=== PATIENT | female | born 1975 | race Caucasian/White ===

== ENCOUNTER 2017-01-28 19:55 | Emergency (ER) | payer OTHER ==
[2017-01-28 20:05] VITALS: BP 143/93
[2017-01-28] MEDS ORDERED: Ondansetron 4 MG/2 ML SDV IVPUSH ONE ×2 (20:16→20:49)
--- NOTE | 2017-01-28 20:17 | EDM.PDOC ---
ED HPI GENERAL MEDICAL PROBLEM - General Chief Complaint: Headache Stated Complaint: VOMITING/HEAD HURTS/LEFT ARM NUMB Time Seen by Provider: 01/28/17 20:10 - History of Present Illness INITIAL COMMENTS - FREE TEXT/NARRATIVE: 41-year-old female presents emergency room with sudden onset severe headache. This headache is been going on for nearly 2 hours fairly sudden onset shortly after it started she had pretty severe vomiting. Patient does not have history of migraines does not have a history of headaches in general. Does not have a family history of spontaneous hemorrhages into the head were of headaches. Patient denies any fevers or chills she has some significant neck discomfort with this as well. Patient is treated for hypertension with metoprolol. Her headache is predominantly on the right side and right occipital area. Right Posterior Head Pain Score (Numeric/FACES): 8 - Related Data Allergies Allergy/AdvReac Type Severity Reaction Status Date / Time No Known Allergies Allergy Verified 01/28/17 20:05 Home Meds: Home Meds Cholecalciferol (Vitamin D3) [Vitamin D3] 50,000 unit PO WE 06/02/15 [History] Metoprolol Succinate [Toprol XL] 25 mg PO DAILY 06/02/15 [History] Past Medical History Cardiovascular History: Reports: High Cholesterol, Hypertension Endocrine/Metabolic History: Reports: Vitamin D Deficiency - Past Surgical History Female Surgical History: Reports: Endometrial Ablation Social & Family History - Tobacco Use Smoking Status *Q: Never Smoker - Recreational Drug Use Recreational Drug Use: No ED ROS GENERAL - Review of Systems Review Of Systems: See Below Constitutional: Reports: No Symptoms Respiratory: Reports: No Symptoms Cardiovascular: Reports: No Symptoms GI/Abdominal: Reports: Nausea, Vomiting. Denies: Constipation, Diarrhea : Reports: No Symptoms Musculoskeletal: Reports: Neck Pain Neurological: Reports: Headache Psychiatric: Reports: No Symptoms Hematologic/Lymphatic: Reports: No Symptoms - Physical Exam Exam: See Below Exam Limited By: No Limitations General Appearance: Alert, Moderate Distress (From the discomfort) Eye Exam: Bilateral Eye: Normal Inspection, PERRL Ears: Normal External Exam, Normal Canal, Hearing Grossly Normal, Normal TMs Nose: Normal Inspection, Normal Mucosa, No Blood Throat/Mouth: Normal Inspection, Normal Lips, Normal Teeth, Normal Gums, Normal Oropharynx, Normal Voice, No Airway Compromise Head Exam: Atraumatic, Normocephalic Neck: Normal Inspection, Other (She has some significant neck tightness and does not want to move her neck). No: Lymphadenopathy (L), Lymphadenopathy (R) Respiratory/Chest: No Respiratory Distress, Lungs Clear, Normal Breath Sounds Cardiovascular: Regular Rate, Rhythm, No Edema, No Murmur GI/Abdominal: Normal Bowel Sounds, Soft, Non-Tender Neuro Exam (Abbreviated): No Motor/Sensory Deficits. No: Inattentive, Confused Course - Vital Signs Last Recorded V/S: Last Vital Signs Temp 35.6 C 01/28/17 20:01 Pulse 113 H 01/28/17 20:01 Resp 22 H 01/28/17 20:01 BP 143/93 H 01/28/17 20:01 Pulse Ox 98 01/28/17 20:01 - Orders/Labs/Meds Orders: Active Orders 24 hr Category Date Time Status Head wo Cont [CT] Stat Exams 01/28/17 20:10 Taken CELL COUNT,CSF TUBE 2 [BF] Stat Lab 01/28/17 22:30 Results CULTURE CSF + SMEAR [RM] Stat Lab 01/28/17 22:30 Received [facility] VIRUS PANEL IGG,IGM [REF] Stat Lab 01/28/17 23:10 Ordered Labs: Laboratory Tests 01/28/17 01/28/17 01/28/17 Range/Units 20:10 20:10 20:10 WBC 11.71 H (3.98-10.04) K/mm3 RBC 4.57 (3.98-5.22) M/mm3 Hgb 13.1 (11.2-15.7) gm/L Hct 39.2 (34.1-44.9) % MCV 85.8 (79.4-94.8) fl MCH 28.7 (25.6-32.2) pg MCHC 33.4 (32.2-35.5) g/dl RDW Std Deviation 38.5 (36.4-46.3) fL Plt Count 302 (182-369) K/mm3 MPV 9.8 (9.4-12.3) fl Neutrophils % (Manual) 57 (40-60) % Band Neutrophils % 0 (0-10) % Lymphocytes % (Manual) 32 (20-40) % Atypical Lymphs % 4 % Monocytes % (Manual) 6 (2-10) % Eosinophils % (Manual) 1 (0.7-5.8) % Basophils % (Manual) 0 L (0.1-1.2) Platelet Estimate Adequate Plt Morphology Comment Normal RBC Morph Comment Normal ESR 29 H (0-20) mm/hr PT 9.7 (8.0-13.0) SECONDS INR 0.90 APTT 24 (22-36) SECONDS Sodium (136-145) mEq/L Potassium (3.5-5.1) mEq/L Chloride (98-107) mEq/L Carbon Dioxide (21-32) mEq/L Anion Gap (5-15) BUN (7-18) mg/dL Creatinine (0.55-1.02) mg/dL Est Cr Clr Drug Dosing mL/min Estimated GFR (MDRD) (>60) mL/min BUN/Creatinine Ratio (14-18) Glucose (74-106) mg/dL Calcium (8.5-10.1) mg/dL Total Bilirubin (0.2-1.0) mg/dL AST (15-37) U/L ALT (14-59) U/L Alkaline Phosphatase (46-116) U/L C-Reactive Protein (<1.0) mg/dL Total Protein (6.4-8.2) g/dl Albumin (3.4-5.0) g/dl Globulin gm/dL Albumin/Globulin Ratio (1-2) Urine Color (Yellow) Urine Appearance (Clear) Urine pH (5.0-8.0) Ur Specific [place] (1.005-1.030) Urine Protein (Negative) Urine Glucose (UA) (Negative) Urine Ketones (Negative) Urine Occult Blood (Negative) Urine Nitrite (Negative) Urine Bilirubin (Negative) Urine Urobilinogen (0.2-1.0) Ur Leukocyte Esterase (Negative) Urine RBC (0-5) /hpf Urine WBC (0-5) /hpf Ur Epithelial Cells (0-5) /hpf Urine Bacteria (FEW) /hpf Urine Mucus (FEW) /hpf CSF Volume (2) ml CSF Color (2) CSF Supernat Color (2) CSF Appearance (2) (CLEAR) CSF WBC (2) (0-8) /uL CSF RBC (2) (0-0.010) /mm*3 CSF Glucose (40-70) mg/dl CSF Total Protein (15-45) mg/dl 0801/28/17 01/28/17 Range/Units 20:10 22:30 22:30 WBC (3.98-10.04) K/mm3 RBC (3.98-5.22) M/mm3 Hgb (11.2-15.7) gm/L Hct (34.1-44.9) % MCV (79.4-94.8) fl MCH (25.6-32.2) pg MCHC (32.2-35.5) g/dl RDW Std Deviation (36.4-46.3) fL Plt Count (182-369) K/mm3 MPV (9.4-12.3) fl Neutrophils % (Manual) (40-60) % Band Neutrophils % (0-10) % Lymphocytes % (Manual) (20-40) % Atypical Lymphs % % Monocytes % (Manual) (2-10) % Eosinophils % (Manual) (0.7-5.8) % Basophils % (Manual) (0.1-1.2) Platelet Estimate Plt Morphology Comment RBC Morph Comment ESR (0-20) mm/hr PT (8.0-13.0) SECONDS INR APTT (22-36) SECONDS Sodium 140 (136-145) mEq/L Potassium 3.4 L (3.5-5.1) mEq/L Chloride 103 (98-107) mEq/L Carbon Dioxide 23 (21-32) mEq/L Anion Gap 17.4 H (5-15) BUN 16 (7-18) mg/dL Creatinine 1.0 (0.55-1.02) mg/dL Est Cr Clr Drug Dosing 59.74 mL/min Estimated GFR (MDRD) > 60 (>60) mL/min BUN/Creatinine Ratio 16.0 (14-18) Glucose 116 H (74-106) mg/dL Calcium 9.4 (8.5-10.1) mg/dL Total Bilirubin 0.2 (0.2-1.0) mg/dL AST 17 (15-37) U/L ALT 21 (14-59) U/L Alkaline Phosphatase 58 (46-116) U/L C-Reactive Protein 0.8 (<1.0) mg/dL Total Protein 8.4 H (6.4-8.2) g/dl Albumin 4.0 (3.4-5.0) g/dl Globulin 4.4 gm/dL Albumin/Globulin Ratio 0.9 L (1-2) Urine Color (Yellow) Urine Appearance (Clear) Urine pH (5.0-8.0) Ur Specific [place] (1.005-1.030) Urine Protein (Negative) Urine Glucose (UA) (Negative) Urine Ketones (Negative) Urine Occult Blood (Negative) Urine Nitrite (Negative) Urine Bilirubin (Negative) Urine Urobilinogen (0.2-1.0) Ur Leukocyte Esterase (Negative) Urine RBC (0-5) /hpf Urine WBC (0-5) /hpf Ur Epithelial Cells (0-5) /hpf Urine Bacteria (FEW) /hpf Urine Mucus (FEW) /hpf CSF Volume (2) 8 ml CSF Color (2) Colorless CSF Supernat Color (2) No xanthochromia CSF Appearance (2) Clear (CLEAR) CSF WBC (2) 3 (0-8) /uL CSF RBC (2) 0 (0-0.010) /mm*3 CSF Glucose 62.0 (40-70) mg/dl CSF Total Protein 32.9 (15-45) mg/dl 01/29/17 Range/Units 00:10 WBC (3.98-10.04) K/mm3 RBC (3.98-5.22) M/mm3 Hgb (11.2-15.7) gm/L Hct (34.1-44.9) % MCV (79.4-94.8) fl MCH (25.6-32.2) pg MCHC (32.2-35.5) g/dl RDW Std Deviation (36.4-46.3) fL Plt Count (182-369) K/mm3 MPV (9.4-12.3) fl Neutrophils % (Manual) (40-60) % Band Neutrophils % (0-10) % Lymphocytes % (Manual) (20-40) % Atypical Lymphs % % Monocytes % (Manual) (2-10) % Eosinophils % (Manual) (0.7-5.8) % Basophils % (Manual) (0.1-1.2) Platelet Estimate Plt Morphology Comment RBC Morph Comment ESR (0-20) mm/hr PT (8.0-13.0) SECONDS INR APTT (22-36) SECONDS Sodium (136-145) mEq/L Potassium (3.5-5.1) mEq/L Chloride (98-107) mEq/L Carbon Dioxide (21-32) mEq/L Anion Gap (5-15) BUN (7-18) mg/dL Creatinine (0.55-1.02) mg/dL Est Cr Clr Drug Dosing mL/min Estimated GFR (MDRD) (>60) mL/min BUN/Creatinine Ratio (14-18) Glucose (74-106) mg/dL Calcium (8.5-10.1) mg/dL Total Bilirubin (0.2-1.0) mg/dL AST (15-37) U/L ALT (14-59) U/L Alkaline Phosphatase (46-116) U/L C-Reactive Protein (<1.0) mg/dL Total Protein (6.4-8.2) g/dl Albumin (3.4-5.0) g/dl Globulin gm/dL Albumin/Globulin Ratio (1-2) Urine Color Yellow (Yellow) Urine Appearance Clear (Clear) Urine pH 6.5 (5.0-8.0) Ur Specific [place] 1.020 (1.005-1.030) Urine Protein Negative (Negative) Urine Glucose (UA) Negative (Negative) Urine Ketones Negative (Negative) Urine Occult Blood Negative (Negative) Urine Nitrite Negative (Negative) Urine Bilirubin Negative (Negative) Urine Urobilinogen 0.2 (0.2-1.0) Ur Leukocyte Esterase Negative (Negative) Urine RBC Not seen (0-5) /hpf Urine WBC 0-5 (0-5) /hpf Ur Epithelial Cells 5-10 H (0-5) /hpf Urine Bacteria Not seen (FEW) /hpf Urine Mucus Not seen (FEW) /hpf CSF Volume (2) ml CSF Color (2) CSF Supernat Color (2) CSF Appearance (2) (CLEAR) CSF WBC (2) (0-8) /uL CSF RBC (2) (0-0.010) /mm*3 CSF Glucose (40-70) mg/dl CSF Total Protein (15-45) mg/dl Meds: Medications Discontinued Medications Generic Name Dose Route Start Last Admin Trade Name Freq PRN Reason Stop Dose Admin Diphenhydramine HCl 50 mg 01/28/17 20:49 01/28/17 20:55 Benadryl IVPUSH 01/28/17 20:50 50 mg ONETIME ONE Administration Lactated Ringer's 1,000 mls @ 999 mls/hr 01/28/17 20:49 01/28/17 20:55 Ringers, Lactated IV 01/28/17 21:49 999 mls/hr .BOLUS ONE Administration Lactated Ringer's 1,000 mls @ 999 mls/hr 01/28/17 22:38 Ringers, Lactated IV 01/28/17 23:38 .BOLUS ONE Ondansetron HCl 4 mg 01/28/17 20:16 01/28/17 20:20 Zofran IVPUSH 01/28/17 20:17 4 mg ONETIME ONE Administration Ondansetron HCl 4 mg 01/28/17 20:49 01/28/17 20:55 Zofran IVPUSH 01/28/17 20:50 4 mg ONETIME ONE Administration - Re-Assessments/Exams Free Text/Narrative Re-Assessment/Exam: 01/28/17 21:[address] is unremarkable patient is receiving IV fluids has received Benadryl and Zofran her nausea is better pain is not significantly better we'll pursue LP 01/29/17 01:01 LP evaluation is unremarkable no signs of infection no xanthochromia and no red cells. At this time the patient is doing much better anticipate discharge soon Departure - Departure Time of Disposition: 01:08 Disposition: Home, Self-Care 01 Clinical Impression: Cephalgia - Discharge Information Referrals: Zainab Gaytan PA [Primary Care Provider] - Forms: ED Department Discharge Additional Instructions: Return to the emergency room with any questions problems worsening symptoms. Go home and sleep. May take clear liquids tonight resume in the morning. Follow-up with your regular provider at the end of this week. - My Orders Last 24 Hours: My Active Orders 01/28/17 20:10 Head wo Cont [CT] Stat 01/28/17 22:30 CELL COUNT,CSF TUBE 2 [BF] Stat CULTURE CSF + SMEAR [RM] Stat 01/28/17 23:10 [facility] VIRUS PANEL IGG,IGM [REF] Stat - Assessment/Plan Last 24 Hours: My Active Orders 01/28/17 20:10 Head wo Cont [CT] Stat 01/28/17 22:30 CELL COUNT,CSF TUBE 2 [BF] Stat CULTURE CSF + SMEAR [RM] Stat 01/28/17 23:10 [facility] VIRUS PANEL IGG,IGM [REF] Stat
[2017-01-28] MEDS ORDERED: diphenhydrAMINE 50 MG/ML SDV IVPUSH ONE (20:49)
[2017-01-28] MEDS ORDERED: Lactated Ringers 1,000 ML IV ONE ×2 (20:49→22:38)
--- NOTE | 2017-01-28 21:58 | PCM.SN ---
- Free Text/Narrative Note: Start: 2149 Stop:[id number] Anesthesia called in for a Diagnostic Lumbar Puncture. Vital signs reviewed, allergies (NKDA), medication list (no blood thinners), and unremarkable head CT noted upon review of ER history and physical. Patient presents with Headache, sudden onset nausea/vomiting, and neck tenderness. Platelets= 302,000 IV placed per ER staff and one liter bolus of LR noted. Risk/benefits of procedure discussed with patient. Consent obtained. Patient positioned RLD, in position. Sterile technique noted with sterile gloves, mask, and sterile drape. Back prepped times 3 with betadine swabs. Area localized with 1% lidocaine. 22gauge quincke spinal needle used. Opening pressure: [id number] Vials sent to lab with lab present to collect. Patient instructed to lay still for one hour to be monitored prior to discharge plans, along with another liter of LR to be infused. CSF appeared clear, with nothing to note. Patient tolerated procedure well, Dr. Mejia informed of opening pressure.
[2017-01-29] MEDS ORDERED: Acetaminophen Soln 650 MG/20.3 ML UD Cup PO ONE (01:11)
[2017-01-29] MEDS ORDERED: Acetaminophen 325 MG Tab PO ONE (01:18)
--- NOTE | 2017-01-29 09:42 | CT ---
Head CT Technique: Multiple axial sections through the brain were obtained. Intravenous contrast was not utilized. Comparison: No previous intracranial imaging. Findings: Ventricles along with basal cisterns and sulci over the convexities are within normal limits for the patient's age. No abnormal parenchymal densities are seen. No evidence of intracranial hemorrhage. No midline shift or mass effect is seen. Bone window settings were reviewed which show the visualized sinuses to appear clear. No acute calvarial abnormality is seen. Impression: 1. Nothing acute is identified on noncontrast head CT study. Diagnostic code #1 Agree with preliminary report issued by [facility] ([facility] preliminary report dictated on 01/28/17, 9:47 PM Central Time)
== END 2017-01-29 01:20 | disposition home or self-care (01) ==
LOC: JD.ED 19:55
DX: R51 Headache (principal); E78.00 Pure hypercholesterolemia, unspecified; I10 Essential (primary) hypertension; Z79.899 Other long term (current) drug therapy
CPT/HCPCS: 36415; 62272; 70450; 80053; 81001; 82945; 84157; 85025; 85610; 85652; 85730; 86140; 87070; 87205; 89050; 96361; 96374; 96375; 96376; 99285; A9270; J1200; J2405; J7120; 62270; 86788; 99284

== ENCOUNTER 2022-11-03 08:57 | Emergency (ER) | payer BC ==
[2022-11-03 09:49] LABS: BASOPHILS ABSOLUTE AUTO 0.11 K/mm3 (0.01-0.08); BASOPHILS PERCENT AUTO 1.5 % (0.1-1.2); EOSINOPHILS ABSOLUTE AUTO 0.03 K/mm3 (0.04-0.36); EOSINOPHILS PERCENT AUTO 0.4 (0.7-5.8); HEMATOCRIT 39.6 % (34.1-44.9); HEMOGLOBIN 13.1 gm/dl (11.2-15.7); IMMATURE GRAN ABSOLUTE AUTO 0.04 K/mm3 (0.00-0.10); IMMATURE GRAN PERCENT AUTO 0.6 % (<=1.0); LYMPHOCYTES ABSOLUTE AUTO 2.45 K/mm3 (1.18-3.74); LYMPHOCYTES PERCENT AUTO 34.4 % (19.3-51.7); MEAN CORPUSCULAR HEMOGLOBIN 28.4 pg (25.6-32.2); MEAN CORPUSCULAR HGB CONC 33.1 g/dl (32.2-35.5); MEAN CORPUSCULAR VOLUME 85.9 fl (79.4-94.8); MEAN PLATELET VOLUME 8.7 fl (9.4-12.3); MONOCYTES ABSOLUTE AUTO 0.65 K/mm3 (0.24-0.36); MONOCYTES PERCENT AUTO 9.1 % (4.7-12.5); NEUTROPHILS ABSOLUTE AUTO 3.85 K/mm3 (1.56-6.13); PLATELET COUNT,PLT 329 K/mm3 (182-369); RED BLOOD CELL COUNT 4.61 M/mm3 (3.98-5.22); WHITE BLOOD CELL COUNT,WBC 7.13 K/mm3 (3.98-10.04)
[2022-11-03] MEDS ORDERED: Metoclopramide 10 MG/2 ML SDV IVPUSH ONE (09:56)
[2022-11-03] MEDS ORDERED: Sodium Chloride 0.9% 1,000 ML IV STA (09:56)
[2022-11-03] MEDS ORDERED: Sodium Chloride 0.9% 10 ML Syringe FLUSH PRN (09:56)
[2022-11-03] MEDS ORDERED: methylPREDNISolone Sodium Succinate 125 MG/2 ML SDV IVPUSH ONE (09:57)
[2022-11-03] MEDS ORDERED: Ketorolac 30 MG/ML SDV IVPUSH ONE (09:57)
[2022-11-03 10:17] LABS: A/G RATIO 0.6 (1-2); ANION GAP 16.7 (5-15); BILIRUBIN TOTAL 0.3 mg/dL (0.2-1.0); CALCIUM 9.1 mg/dL (8.5-10.1); CREATININE 0.8 mg/dL (0.55-1.02); EST CRCL DRUG DOSING (CG) 76.68 mL/min; POTASSIUM,K 3.7 mEq/L (3.5-5.1); PROTEIN TOTAL,TP 8.5 g/dl (6.4-8.2)
[2022-11-03 11:01] LABS: SLIDE REVIEW NORMAL SMEAR
[2022-11-03 11:21] LABS: APPEARANCE,URINE CLEAR (Clear); BILIRUBIN,URINE NEGATIVE (Negative); COLOR,URINE YELLOW (Yellow); GLUCOSE,URINE NEGATIVE (Negative); KETONES,URINE 3+ (Negative); LEUKOCYTE ESTERASE,URINE NEGATIVE (Negative); NITRITE,URINE NEGATIVE (Negative); OCCULT BLOOD,URINE NEGATIVE (Negative); PROTEIN,URINE NEGATIVE (Negative); UROBILINOGEN,URINE 0.2 (0.2-1.0)
[2022-11-03 11:31] LABS: CORONAVIRUS COVID-19 NAA NEGATIVE (NEGATIVE); INFLUENZA A NAA NEGATIVE (NEGATIVE); RESPIRATORY SYNCYTIAL VIR NAA NEGATIVE (NEGATIVE)
[2022-11-03 11:42] LABS: BACTERIA,URINE FEW /hpf (FEW); EPITHELIAL CELLS,URINE 0-5 /hpf (0-5); MUCUS,URINE FEW /hpf (FEW); RBC,URINE 0-5 /hpf (0-5); WBC,URINE 0-5 /hpf (0-5)
[2022-11-03 11:46] VITALS: BP 120/79; PULSE 86
[2022-11-03] MEDS ORDERED: cefTRIAXone 1 GM in Sodium Chloride 0.9% 100 ML IV ONE (12:30)
== END 2022-11-03 13:50 | disposition home or self-care (01) ==
LOC: JD.ED 08:57
DX: J03.90 Acute tonsillitis, unspecified (principal); B96.89 Other specified bacterial agents as the cause of diseases classified elsewhere; E86.0 Dehydration; R11.2 Nausea with vomiting, unspecified; I10 Essential (primary) hypertension; Z20.822 Contact with and (suspected) exposure to COVID-19
CPT/HCPCS: 0241U; 36415; 71045; 80053; 81001; 83605; 85025; 86308; 87040; 87651; 96361; 96365; 96375; 99283; J0696; J1885; J2765; J2930; J3490; J7030; 99284